=== PATIENT | female | born 1945 | race Caucasian/White ===

== ENCOUNTER 2016-10-22 07:47 | Day surgery (SDC) | payer MEDICAID, MEDICARE, OTHER ==
[2016-10-22] MEDS ORDERED: Lactated Ringers 1,000 ML IV SCH (08:30)
[2016-10-22] MEDS ORDERED: Midazolam 1 MG/ML 2 ML SDV ONE (08:46)
[2016-10-22] MEDS ORDERED: Propofol 200 MG/20 ML SDV ONE ×2 (08:46→10:04)
[2016-10-22] MEDS ORDERED: fentaNYL 100 MCG/2 ML SDV ONE (08:46)
[2016-10-22 11:36] VITALS: BP 128/71
--- NOTE | 2016-10-23 07:27 | OR ---
DATE OF PROCEDURE: 10/22/2016 PREOPERATIVE DIAGNOSIS: History of colon polyps. POSTOPERATIVE DIAGNOSES: 1. Diverticulosis. 2. Small colon polyp, 25 cm from the anal verge. 3. History of colon polyps. PROCEDURE PERFORMED: Colonoscopy to the cecum with biopsy resection of small colon polyp, 25 cm from the anal verge. ANESTHESIA: IV anesthesia with monitored anesthesia care. INDICATION: This 71-year-old white female is referred for a colonoscopy. She has a history of colon polyps. She is not sure when her last colonoscopic exam was performed. I counseled her for the procedure including risks and alternatives, and she gave her informed consent to proceed. DESCRIPTION OF PROCEDURE: The patient was placed in the left lateral decubitus position. IV anesthesia was administered by the Anesthesia Service. Time-out was held. A rectal exam was performed, which was unremarkable. The flexible video Olympus colonoscope was introduced through her anus, up her rectum, and out her colon all way to the cecum. En route, we saw very few scattered left-sided diverticula. There was no bleeding or inflammation associated with them. Once the cecum was reached, the scope was slowly withdrawn examining the mucosa throughout. No additional mucosal abnormalities were noteduntil we reached 25 cm from the anal verge. Here, a small polyp was seen, which was removed with a single bite of the biopsy forceps. This scope was brought back into the rectum, where it was retroflexed. Tthe distal rectum appeared unremarkable. The scope was straightened and removed. She tolerated the procedure well. Ableardo Duron MD /[id number] JOIE
== END 2016-10-22 11:45 | disposition home or self-care (01) ==
LOC: JP.SDS 07:47
PROVIDERS: ATTEND Surgery
DX: K57.30 Diverticulosis of large intestine without perforation or abscess without bleeding (principal); J44.9 Chronic obstructive pulmonary disease, unspecified; I25.10 Atherosclerotic heart disease of native coronary artery without angina pectoris; I10 Essential (primary) hypertension; K21.9 Gastro-esophageal reflux disease without esophagitis; F31.9 Bipolar disorder, unspecified; F41.9 Anxiety disorder, unspecified; E11.9 Type 2 diabetes mellitus without complications; Z86.73 Personal history of transient ischemic attack (TIA), and cerebral infarction without residual deficits; Z86.010 Personal history of colon polyps
CPT/HCPCS: 45380; 88305; J2250; J2704; J3010; J7120

== ENCOUNTER 2021-07-03 13:05 | Emergency (ER) | payer MEDICARE ==
[2021-07-03] MEDS ORDERED: Sodium Chloride 0.9% 10 ML Syringe FLUSH PRN (13:18)
[2021-07-03] MEDS ORDERED: cefTRIAXone 1 GM in Sodium Chloride 0.9% 50 ML IV ONE (14:28)
[2021-07-03 17:20] VITALS: BP 119/77; PULSE 64
== END 2021-07-03 18:51 ==
LOC: JP.ED 13:05
DX: G45.9 Transient cerebral ischemic attack, unspecified (principal); J44.9 Chronic obstructive pulmonary disease, unspecified; E11.9 Type 2 diabetes mellitus without complications; F31.9 Bipolar disorder, unspecified; F41.9 Anxiety disorder, unspecified; I25.10 Atherosclerotic heart disease of native coronary artery without angina pectoris; E78.00 Pure hypercholesterolemia, unspecified; I10 Essential (primary) hypertension; K21.9 Gastro-esophageal reflux disease without esophagitis; M19.90 Unspecified osteoarthritis, unspecified site; D64.9 Anemia, unspecified; Z79.4 Long term (current) use of insulin; Z79.82 Long term (current) use of aspirin; Z79.899 Other long term (current) drug therapy
CPT/HCPCS: 36415; 70450; 71045; 74176; 80053; 81001; 83605; 84484; 85025; 85610; 85730; 87086; 93005; 96365; 99285; J0696

== ENCOUNTER 2022-06-18 21:22 | Inpatient (IN) | payer MEDICARE ==
[2022-06-18] MEDS ORDERED: Sodium Chloride 0.9% 10 ML Syringe FLUSH PRN (21:38)
[2022-06-18] MEDS ORDERED: Sodium Chloride 0.9% 1,000 ML IV SCH (21:45)
[2022-06-18 22:13] LABS: CORONAVIRUS COVID-19 NAA NEGATIVE (NEGATIVE)
[2022-06-18 22:17] LABS: ESTIMATED GFR 31 mL/min (>60); TROPONIN I HIGH SENSITIVITY 24.5 pg/mL (<=60.3)
[2022-06-18] MEDS ORDERED: Cefepime 2 GM in Sodium Chloride 0.9% 50 ML IV ONE (22:43)
[2022-06-18] MEDS ORDERED: Lactated Ringers 1,000 ML IV SCH (22:45)
[2022-06-18] MEDS ORDERED: Aluminum Hydroxide/Magnesium Hydroxide/Simethicone Susp 30 ML Cup PO PRN (22:57)
[2022-06-18] MEDS ORDERED: Cefepime 1 GM Vial ONE (22:58)
[2022-06-19] MEDS ORDERED: Docusate Sodium 100 MG Cap PO PRN (00:33)
[2022-06-19] MEDS ORDERED: Ondansetron 4 MG Tab.DIS PO PRN (00:33)
[2022-06-19] MEDS ORDERED: Bisacodyl 5 MG Tab PO PRN (00:33)
[2022-06-19] MEDS ORDERED: Albuterol 0.083% 2.5 MG/3 ML Neb Soln NEB PRN (00:33)
[2022-06-19] MEDS ORDERED: oxyCODONE 5 MG Tab PO PRN (00:33)
[2022-06-19] MEDS ORDERED: Acetaminophen 325 MG Tab PO PRN (00:33)
[2022-06-19] MEDS ORDERED: Nitroglycerin 0.4 MG Tab.SL SL PRN (00:33)
[2022-06-19] MEDS ORDERED: Albuterol/Ipratropium 3.0-0.5 MG/3 ML Neb Soln NEB PRN (00:33)
[2022-06-19] MEDS ORDERED: Clopidogrel 75 MG Tab PO PRN (00:33)
[2022-06-19] MEDS ORDERED: Potassium Chloride 10 MEQ in Premix Bag 1 BAG IV ONE (00:33)
[2022-06-19] MEDS ORDERED: Potassium Chloride 20 MEQ in Premix Bag 1 BAG IV ONE (00:33)
[2022-06-19] MEDS ORDERED: Ondansetron 4 MG/2 ML SDV IV PRN (00:33)
[2022-06-19] MEDS: Sodium Chloride 0.9% 1,000 ML IV SCH ×2 (01:25→14:01)
[2022-06-19] MEDS: Morphine 2 MG/ML SYRINGE IVPUSH PRN ×2 (01:25→03:57)
[2022-06-19] MEDS: LORazepam 2 MG/ML SDV IV PRN ×2 (01:50→10:22)
[2022-06-19] MEDS: Potassium Chloride 10 MEQ in Premix Bag 1 BAG IV SCH ×2 (02:48→03:52)
[2022-06-19] MEDS ORDERED: Pantoprazole 40 MG Vial IV SCH (07:30)
[2022-06-19] MEDS ORDERED: Carvedilol 12.5 MG Tab PO SCH (08:00)
[2022-06-19] MEDS: Gabapentin 300 MG Cap PO SCH ×2 (08:19→14:02)
[2022-06-19] MEDS: Insulin Lispro 100 Unit/ML 3 ML KwikPen SUBCUT SCH ×2 (08:43→12:36)
[2022-06-19] MEDS ORDERED: Sennosides 8.6 MG Tab PO SCH (09:00)
[2022-06-19] MEDS ORDERED: Isosorbide Mononitrate 30 MG Tab.ER PO SCH (09:00)
[2022-06-19] MEDS ORDERED: lamoTRIgine 100 MG Tab PO SCH (09:00)
[2022-06-19] MEDS ORDERED: Losartan 25 MG Tab PO SCH (09:00)
[2022-06-19] MEDS ORDERED: Cefepime 1 GM in Sodium Chloride 0.9% 50 ML IV SCH (10:30)
[2022-06-19] MEDS ORDERED: LORazepam 1 MG Tab PO PRN (10:53)
[2022-06-19] MEDS ORDERED: Albuterol/Ipratropium 3.0-0.5 MG/3 ML Neb Soln NEB SCH (11:00)
[2022-06-19] MEDS: Clopidogrel 75 MG Tab PO SCH ×2 (12:37→14:03)
[2022-06-19] MEDS ORDERED: Morphine 10 MG/0.5 ML Oral Syringe PO PRN (13:16)
[2022-06-19] MEDS ORDERED: LORazepam ORAL Concentrate 1MG/0.5ML U/D PO PRN (13:17)
[2022-06-19 13:18] VITALS: BP 142/68; PULSE 94
[2022-06-19] MEDS ORDERED: Vancomycin 1.2 GM in Sodium Chloride 0.9% 250 ML IV SCH (18:00)
[2022-06-19] MEDS ORDERED: DULoxetine 20 MG Cap PO SCH (21:00)
[2022-06-20] MEDS ORDERED: Pantoprazole 40 MG Tab.CR PO SCH (07:30)
[2022-06-20] MEDS ORDERED: Cefepime 1 GM Vial IV SCH (11:00)
[2022-06-20] MEDS ORDERED: Vancomycin 1 GM SDV IV SCH (12:10)
== END 2022-06-19 14:34 | disposition expired | DRG 871 ==
LOC: JP.ED 21:22 → JP.MS 06-19 00:18
PROVIDERS: ADMIT Internal Medicine; ATTEND Internal Medicine
DX: A41.9 Sepsis, unspecified organism (principal); K55.059 Acute (reversible) ischemia of intestine, part and extent unspecified; N17.9 Acute kidney failure, unspecified; E87.20 Acidosis, unspecified; K35.30 Acute appendicitis with localized peritonitis, without perforation or gangrene; N18.4 Chronic kidney disease, stage 4 (severe); R53.1 Weakness; K63.89 Other specified diseases of intestine; Z20.822 Contact with and (suspected) exposure to COVID-19; Z66 Do not resuscitate; J44.9 Chronic obstructive pulmonary disease, unspecified; E11.22 Type 2 diabetes mellitus with diabetic chronic kidney disease; F31.9 Bipolar disorder, unspecified; I12.9 Hypertensive chronic kidney disease with stage 1 through stage 4 chronic kidney disease, or unspecified chronic kidney disease; G47.00 Insomnia, unspecified; I25.83 Coronary atherosclerosis due to lipid rich plaque; E87.6 Hypokalemia; D63.1 Anemia in chronic kidney disease; F17.210 Nicotine dependence, cigarettes, uncomplicated; E55.9 Vitamin D deficiency, unspecified; H54.7 Unspecified visual loss; E78.00 Pure hypercholesterolemia, unspecified; I25.10 Atherosclerotic heart disease of native coronary artery without angina pectoris; G47.30 Sleep apnea, unspecified; M19.90 Unspecified osteoarthritis, unspecified site; G89.29 Other chronic pain; M54.9 Dorsalgia, unspecified; K21.9 Gastro-esophageal reflux disease without esophagitis; F41.1 Generalized anxiety disorder; F31.89 Other bipolar disorder; Z86.010 Personal history of colon polyps; Z90.49 Acquired absence of other specified parts of digestive tract; Z86.19 Personal history of other infectious and parasitic diseases; Z79.02 Long term (current) use of antithrombotics/antiplatelets; Z79.4 Long term (current) use of insulin; Z79.899 Other long term (current) drug therapy; Z79.84 Long term (current) use of oral hypoglycemic drugs
CPT/HCPCS: 0241U; 36415; 70450; 71045; 74176; 80048; 80053; 80202; 81001; 82947; 83605; 83735; 84145; 84484; 85025; 85730; 86140; 87040; 87086; 94640; 96361; 96365; 99285; A9270-GY; C9113; J0692; J1815; J2060; J2270; J3370; J3480; J3490; J7030; J7050; J7120; J7620